=== PATIENT | male | born 1980 | race Caucasian/White ===

== ENCOUNTER 2020-08-29 08:50 | Outpatient (RCR) | payer OTHER ==
[~2020-08-29 08:50] MED LIST: ATARAX 25MG25 MG/TAB PO; LEXAPRO 10MG10 MG PO; PERCOCET 325 MG1 TA2 PO
== END 2020-11-27 | disposition home or self-care (01) ==
LOC: WSOH
DX: S00.83XA Contusion of other part of head, initial encounter (principal); M26.69 Other specified disorders of temporomandibular joint; Z98.890 Other specified postprocedural states; Y99.0 Civilian activity done for income or pay